=== PATIENT | male | born 1985 | race Caucasian/White ===

== ENCOUNTER 2016-09-12 16:35 | Emergency (ER) | payer MEDICARE, MEDICAID ==
[2016-09-12] MEDS ORDERED: KETOROLAC 30 MG/ML VIAL (J1885) As Ordered ONE (19:41)
[2016-09-12 19:58] LABS: BASO # 0.1 K/mm3 (0.0-0.2); BASO % 0.9 % (0.0-1.0); EOS # 0.3 K/mm3 (0.0-0.50); EOS % 4.4 % (0.0-3.0); LARGE UNSTAINED CELL # 0.2 K/mm3 (0.0-0.4); LARGE UNSTAINED CELL % 3.6 % (0.0-4.0); LYMPH # 1.9 K/mm3 (1.5-4.5); LYMPH % 31.5 % (24.0-44.0); MEAN CORPUSCULAR HEMOGLOBIN 30.7 pg (27.0-33.0); MEAN CORPUSCULAR HGB CONC 36.5 g/dl (32.0-36.5); MONO # 0.5 K/mm3 (0.0-0.8); MONO % 8.6 % (0.0-5.0); NEUTROPHILS # 3.1 K/mm3 (1.8-7.7); PLATELET COUNT, AUTOMATED 191 k/mm3 (150-450); RED CELL DISTRIBUTION WIDTH 12.5 % (11.5-14.5)
[2016-09-12 20:17] LABS: ANION GAP 8 MEQ/L (8-16); BLOOD UREA NITROGEN 10 MG/DL (7-18); CALCIUM LEVEL 9.3 MG/DL (8.5-10.1); CARBON DIOXIDE LEVEL 30 MEQ/L (21-32); CHLORIDE LEVEL 105 MEQ/L (98-107); CREATININE FOR GFR 0.85 MG/DL (0.70-1.30); GLOMERULAR FILTRATION RATE > 60.0 (>60); GLUCOSE, FASTING 76 MG/DL (70-105); POTASSIUM SERUM 3.8 MEQ/L (3.5-5.1); SODIUM LEVEL 143 MEQ/L (136-145)
[2016-09-12 20:20] LABS: INR 1.05
--- NOTE | 2016-09-12 21:19 | EDDOCDS ---
Nurse's Notes [facility] Name: Derek Tenorio Age: 31 yrs Sex: Male : 1985 Arrival Date: 09/12/2016 Time: 16:35 Bed I8 / 16 Private MD: NO PRIMARY PHYSICIAN, . Diagnosis: Chest pain, unspecified;Conduction disorder, unspecified Presentation: 09/12 16:39 Presenting complaint: Patient states: Left side chest pain for over a week. Aspirin was dwg not taken prior to arrival. Adult Sepsis Screening: The patient does not have new or worsening altered mentation. Patient's respiratory rate is less than 22. Systolic blood pressure is greater than 100. Patient has a qSOFA score of 0- Negative Sepsis Screen. Suicide/Homicide risk assessment- the patient denies having any suicidal and/or homicidal ideations and does not present with any other emotional, behavioral or mental health complaints. Status: Patient is not a chief dispatcher service or dependent. Transition of care: patient was not received from another setting of care. 16:39 Acuity: ABBY Level 4 dwg 16:39 Method Of Arrival: Walkin/Carried/Asstd dwg Triage Assessment: 16:40 General: Appears in no apparent distress. Pain: Pain currently is 5 out of 10 on a pain dwg scale. HIV screening NA for this visit Offered previously. The patient is triaged at the bedside. See Assessment in Nurses Notes section of ED record. The patient is triaged at the bedside. See Assessment in Nurses Notes section of ED record. 21:18 Cardiovascular: Chest pain is denied episodes. af2 Historical: - Allergies: no known allergies; - Home Meds: 1. none - PMHx: none; - PSHx: none; - Social history: Smoking status: Patient states former smoker of tobacco. No barriers to communication noted, The patient speaks fluent Malagasy. - Family history: Not pertinent. - : The pt / caregiver states he / she is not on anticoagulants. Home medication list is obtained from the patient. - Exposure Risk Screening:: None identified. Screenin:45 Screening information is obtained from the patient. Fall risk: No risks identified. af2 Assistance ADL's: requires no assistance with activities of daily living. Abuse/DV Screen: The patient / caregiver reports he/she is: not in a situation that causes fear, pain or injury. Nutritional screening: No deficits noted. Advance Directives: Currently, there is no health care proxy. home support is adequate. Assessment: 19:46 General: Appears in no apparent distress, comfortable, Behavior is appropriate for age, af2 cooperative. General: pt states no pain at this time, toradol held. will continue to monitor.. Pain: Denies pain. Neurological: Level of Consciousness is awake, alert, obeys commands, Oriented to person, place, time. Cardiovascular: Capillary refill < 3 seconds in bilateral fingers Heart tones S1 S2 present Pulses are 2+ in right radial artery and left radial artery Rhythm is pt not on cardiac monitor technician. Chest pain is denied. Respiratory: Airway is patent Respiratory effort is even, unlabored, Breath sounds are clear bilaterally. Derm: Skin is normal. 20:57 General: EVERTON Davis at bedside with pt.. af2 Vital Signs: 16:36 BP 152 / 92; Pulse 79; Resp 16; Temp 95.9(O); Pulse Ox 100% ; Weight 81.65 kg; Height 6 cmb ft. 1 in. (185.42 cm); Pain 5/10; 21:13 BP 126 / 80; Pulse 60; Resp 18; Temp 98.8; Pulse Ox 99% ; Pain 2/10; ajs 16:36 Body Mass Index 23.75 (81.65 kg, 185.42 cm) cmb Vitals: 16:36 Log In Time: September 12, 2016 at 16:35. cmb ED Course: 16:36 Patient visited by Norma Osei. cmb 16:36 NO PRIMARY PHYSICIAN, . is Private Physician. cmb 16:36 Patient moved to Waiting cmb 16:38 Patient moved to Pre RCE cmb 16:40 Triage Initiated dwg 16:43 Patient moved to PR2 / 26 mb9 16:45 EKG done. (by ED staff). Reviewed by Kwabena Ramos MD. ar3 16:50 Patient visited by Ana Paula Robledo PCA. ar3 16:50 Patient moved to Pre RCE dwg 18:44 Patient moved to Triage 3 srm 18:53 [facility]C [facility] ck7 18:53 Kwabena Ramos MD is Attending Physician. ck7 18:53 Patient visited by Remy Castro RPA-C. ck7 19:25 Patient moved to sls1 19:31 Patient visited by Remy Castro RPA-C. ck7 19:45 D-Dimer Quant Sent. af2 19:45 Cardiac Marker Panel Sent. af2 19:45 Pt & Aptt Sent. af2 19:45 MED Profile Sent. af2 19:45 CBC with Diff Sent. af2 19:46 Inserted saline lock: 20 gauge in left antecubital area and blood collected. The af2 patient tolerated the procedure well. 19:47 Patient visited by Paige Mccauley RN. af2 20:34 Patient visited by Remy Castro RPA-C. ck7 20:58 Patient visited by Paige Mccauley RN. af2 20:58 Nash Tavarez is Referral Physician. ck7 21:13 Patient visited by Maura Mohr. ajs 21:18 The patient / caregiver is instructed regarding the plan of care and ED course. none. af2 21:18 No procedures done that require assistance. af2 Administered Medications: 19:45 Drug: NS 0.9% 1000 ml [sodium chloride 0.9 % intravenous solution] Route: IV; Rate: af2 bolus; Site: left antecubital; 21:17 Follow up: IV Status: Completed infusion af2 21:17 Not Given (Patient Refused): ketorolac 30 mg IVP once af2 Order Results: Lab Order: CBC with Diff; SPEC'M 09/12/16 19:39 Test: WHITE BLOOD COUNT; Value: 6.0; Range: 4.0-10.0; Units: K/mm3; Status: F Test: RED BLOOD COUNT; Value: 4.87; Range: 4.30-6.10; Units: M/mm3; Status: F Test: HEMOGLOBIN; Value: 14.9; Range: 14.0-18.0; Units: g/dl; Status: F Test: HEMATOCRIT; Value: 40.9; Range: 42.0-52.0; Abnormal: Below low normal; Units: %; Status: F Test: MEAN CORPUSCULAR VOLUME; Value: 84.0; Range: 80.0-96.0; Units: fl; Status: F Test: MEAN CORPUSCULAR HEMOGLOBIN; Value: 30.7; Range: 27.0-33.0; Units: pg; Status: F Test: MEAN CORPUSCULAR HGB CONC; Value: 36.5; Range: 32.0-36.5; Units: g/dl; Status: F Test: RED CELL DISTRIBUTION WIDTH; Value: 12.5; Range: 11.5-14.5; Units: %; Status: F Test: PLATELET COUNT, AUTOMATED; Value: 191; Range: 150-450; Units: k/mm3; Status: F Test: NEUTROPHILS %; Value: 51.0; Range: 36.0-66.0; Units: %; Status: F Test: LYMPH %; Value: 31.5; Range: 24.0-44.0; Units: %; Status: F Test: MONO %; Value: 8.6; Range: 0.0-5.0; Abnormal: Above high normal; Units: %; Status: F Test: EOS %; Value: 4.4; Range: 0.0-3.0; Abnormal: Above high normal; Units: %; Status: F Test: BASO %; Value: 0.9; Range: 0.0-1.0; Units: %; Status: F Test: LARGE UNSTAINED CELL %; Value: 3.6; Range: 0.0-4.0; Units: %; Status: F Test: NEUTROPHILS #; Value: 3.1; Range: 1.8-7.7; Units: K/mm3; Status: F Test: LYMPH #; Value: 1.9; Range: 1.5-4.5; Units: K/mm3; Status: F Test: MONO #; Value: 0.5; Range: 0.0-0.8; Units: K/mm3; Status: F Test: EOS #; Value: 0.3; Range: 0.0-0.50; Units: K/mm3; Status: F Test: BASO #; Value: 0.1; Range: 0.0-0.2; Units: K/mm3; Status: F Test: LARGE UNSTAINED CELL #; Value: 0.2; Range: 0.0-0.4; Units: K/mm3; Status: F Lab Order: MED Profile; SPEC'M 09/12/16 19:39 Test: GLUCOSE, FASTING; Value: 76; Range: 70-105; Units: MG/DL; Status: F Test: BLOOD UREA NITROGEN; Value: 10; Range: 7-18; Units: MG/DL; Status: F Test: CREATININE FOR GFR; Value: 0.85; Range: 0.70-1.30; Units: MG/DL; Status: F Test: GLOMERULAR FILTRATION RATE; Value: > 60.0; Range: >60; Status: F Test: SODIUM LEVEL; Value: 143; Range: 136-145; Units: MEQ/L; Status: F Test: POTASSIUM SERUM; Value: 3.8; Range: 3.5-5.1; Units: MEQ/L; Status: F Test: CHLORIDE LEVEL; Value: 105; Range: 98-107; Units: MEQ/L; Status: F Test: CARBON DIOXIDE LEVEL; Value: 30; Range: 21-32; Units: MEQ/L; Status: F Test: ANION GAP; Value: 8; Range: 8-16; Units: MEQ/L; Status: F Test: CALCIUM LEVEL; Value: 9.3; Range: 8.5-10.1; Units: MG/DL; Status: F Test Note: ; Units are mL/min/1.73 m2 Chronic Kidney Disease Staging per NKF: Stage I & II GFR >=60 Normal to Mildly Decreased Stage III GFR 30-59 Moderately Decreased Stage IV GFR 15-29 Severely Decreased Stage V GFR <15 Very Little GFR Left ESRD GFR <15 on CLEANING SPECIALIST Lab Order: Pt & Aptt; SPEC'M 09/12/16 20:03 Test: PROTHROMBIN TIME; Value: 13.8; Range: 12.3-14.5; Units: SECONDS; Status: F Test: INR; Value: 1.05; Status: F Test: PARTIAL THROMBOPLASTIN TIME; Value: 30.6; Range: 26.6-37.1; Units: SECONDS; Status: F Test Note: ; THERAPUTIC HUMAN INR VALUES INDICATIONS NORMAL RANGES PROPHYLAXIS/TREATMENT OF: VENOUS THROMBOSIS 2.0-3.0 PULMONARY EMBOLISM 2.0-3.0 PREVENTION OF SYSTEMIC EMBOLISM FROM: TISSUE HEART VALVES 2.0-3.0 ACUTE MYOCARDIAL INFARCTION 2.0-3.0 VALVULAR HEART DISEASE 2.0-3.0 ATRIAL FIBRILLATION 2.0-3.0 MECHANICAL VALVES(HIGH RISK) 2.5-3.5 RECURRENT MYOCARDIAL INFARCTION 2.5-3.5 Lab Order: Cardiac Marker Panel; SPEC'M 09/12/16 19:39 Test: CPK CREATINE PHOSPHOKINASE; Value: 147; Range: 39-308; Units: U/L; Status: F Test: CK-MB VALUE MASS; Value: 1.0; Range: 0.0-3.6; Units: NG/ML; Status: F Test: MB/CK RELATIVE INDEX; Value: 0.68; Range: < OR =4; Status: F Test: TROPONIN I; Value: < 0.02; Range: < 0.10; Units: NG/ML; Status: F Test Note: ; DIAGNOSIS CRITERIA MMB ng/ml Relative Index (RI) NON-AMI < or = 5 N/A CO[place]MAN ZONE > 5 < or = 4 AMI > 5 > 4 Lab Order: D-Dimer Quant; SPEC'M 09/12/16 20:03 Test: D-DIMER QUANT; Value: < 270.0; Range: <500; Units: ng/ml; Status: F Outcome: 20:58 Discharge ordered by Provider. ck7 21:17 Discharge Assessment: Patient awake, alert and oriented x 3. No cognitive and/or af2 functional deficits noted. Patient verbalized understanding of disposition instructions. patient administered narcotics - no. The following High Risk Discharge criteria are identified: None. Discharged to home ambulatory. Condition: good. Discharge instructions given to patient, Instructed on discharge instructions, follow up and referral plans. Demonstrated understanding of instructions, Pt was receptive of discharge instructions/ teaching. No special radiology studies were completed. Property :Personal belongings accompany Pt. 21:18 Patient left the ED. af2 Signatures: Ramin Gómez RN RN dwSultana Forman RN RN srm Meena, Ana Paula, SALES AND IN HOME DELIVERY SPECIALIST SALES AND IN HOME DELIVERY SPECIALIST ar3 Maura Mohr Shannon RN RN ml1 Norma Osei Christopher, RPA-C RPA-Cck7 Sim DenneyRN RN mb9 Paige Mccauley RN RN af2 MTDD
--- NOTE | 2016-09-12 21:19 | EDDOCDS ---
Physician Documentation [facility] Name: Derek Tenorio Age: 31 yrs Sex: Male : 1985 Arrival Date: 09/12/2016 Time: 16:35 Bed I8 / 16 Private MD: NO PRIMARY PHYSICIAN, . Disposition: 09/12/16 20:58 Discharged to Home/Self Care. Impression: Chest pain, unspecified, Conduction disorder, unspecified. - Condition is Stable. - Discharge Instructions: Nonspecific Chest Pain, Electrocardiography. - Medication Reconciliation, Local Pharmacy Hours form. - Follow up: Nash Tavarez; When: 1 - 2 days; Reason: Recheck today's complaints, Continuance of care. - Problem is new. - Symptoms have improved. - Notes: FOLLOW UP WITH DR TAVAREZ OR ONE OF HIS ASSOCIATES, RETURN TO THE ER IF THE SYMPTOMS WORSEN OR BECOME CONCERNING Historical: - Allergies: no known allergies; - Home Meds: 1. none - PMHx: none; - PSHx: none; - Social history: Smoking status: Patient states former smoker of tobacco. No barriers to communication noted, The patient speaks fluent Ivorian. - Family history: Not pertinent. - : The pt / caregiver states he / she is not on anticoagulants. Home medication list is obtained from the patient. - Exposure Risk Screening:: None identified. Vital Signs: 09/12 16:36 BP 152 / 92; Pulse 79; Resp 16; Temp 95.9(O); Pulse Ox 100% ; Weight 81.65 kg / 180.01 cmb lbs; Height 6 ft. 1 in. (185.42 cm); Pain 5/10; 21:13 BP 126 / 80; Pulse 60; Resp 18; Temp 98.8; Pulse Ox 99% ; Pain 2/10; ajs 16:36 Body Mass Index 23.75 (81.65 kg, 185.42 cm) cmb MDM: 16:44 ECG WITH READING ER PHYS+CARDIAG ordered. EDMS 19:11 IV Saline Lock ordered. ck7 19:11 ketorolac 30 mg IVP once ordered. ck7 19:11 NS 0.9% 1000 ml IV at bolus once ordered. ck7 19:13 CBC with Diff Ordered. EDMS 19:13 MED Profile Ordered. EDMS 19:13 Pt & Aptt Ordered. EDMS 19:13 Cardiac Marker Panel Ordered. EDMS 19:13 D-Dimer Quant Ordered. EDMS 19:13 Chest, 2 View (pa\E\lat) Ordered. EDMS 20:40 CBC with Diff Reviewed. ck7 20:40 MED Profile Reviewed. ck7 20:40 Pt & Aptt Reviewed. ck7 20:40 Cardiac Marker Panel Reviewed. ck7 20:40 D-Dimer Quant Reviewed. ck7 20:48 Financial registration complete. ks16 20:55 Undo -Financial registration. gjb Administered Medications: 19:45 Drug: NS 0.9% 1000 ml [sodium chloride 0.9 % intravenous solution] Route: IV; Rate: af2 bolus; Site: left antecubital; 21:17 Follow up: IV Status: Completed infusion af2 21:17 Not Given (Patient Refused): ketorolac 30 mg IVP once af2 Signatures: Dispatcher [employer] EDRamin Koenig, RN RN docg Remy Castro, RPA-C RPA-Cck7 Paige Mccauley RN RN af2 Gisela Bowman Kimberly, Reg Reg ks16 MTDD
--- NOTE | 2016-09-13 07:34 | REP ---
Chest two views HISTORY: Chest pain Comparison: 07/04/2010 The lungs are clear. The heart is normal in size. The pulmonary vasculature is normal in appearance. The bony structure is intact. IMPRESSION: No acute disease. Signed by Dennis Ragsdale MD 09/12/2016 07:57 P
--- NOTE | 2016-09-13 08:02 | ECGEPIP ---
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
--- NOTE | 2016-09-14 22:19 | EDDOCDS ---
Physician Documentation [facility] Name: Derek Tenorio Age: 31 yrs Sex: Male : 1985 Arrival Date: 09/12/2016 Time: 16:35 Bed I8 / 16 Private MD: NO PRIMARY PHYSICIAN, . Disposition: 09/12/16 20:58 Discharged to Home/Self Care. Impression: Chest pain, unspecified, Conduction disorder, unspecified. - Condition is Stable. - Discharge Instructions: Nonspecific Chest Pain, Electrocardiography. - Medication Reconciliation, Local Pharmacy Hours form. - Follow up: Nash Tavarez; When: 1 - 2 days; Reason: Recheck today's complaints, Continuance of care. - Problem is new. - Symptoms have improved. - Notes: FOLLOW UP WITH DR TAVAREZ OR ONE OF HIS ASSOCIATES, RETURN TO THE ER IF THE SYMPTOMS WORSEN OR BECOME CONCERNING Historical: - Allergies: no known allergies; - Home Meds: 1. none - PMHx: none; - PSHx: none; - Social history: Smoking status: Patient states former smoker of tobacco. No barriers to communication noted, The patient speaks fluent Japanese. - Family history: Not pertinent. - : The pt / caregiver states he / she is not on anticoagulants. Home medication list is obtained from the patient. - Exposure Risk Screening:: None identified. Vital Signs: 09/12 16:36 BP 152 / 92; Pulse 79; Resp 16; Temp 95.9(O); Pulse Ox 100% ; Weight 81.65 kg / 180.01 cmb lbs; Height 6 ft. 1 in. (185.42 cm); Pain 5/10; 21:13 BP 126 / 80; Pulse 60; Resp 18; Temp 98.8; Pulse Ox 99% ; Pain 2/10; ajs 16:36 Body Mass Index 23.75 (81.65 kg, 185.42 cm) cmb MDM: 16:44 ECG WITH READING ER PHYS+CARDIAG ordered. EDMS 19:11 IV Saline Lock ordered. ck7 19:11 ketorolac 30 mg IVP once ordered. ck7 19:11 NS 0.9% 1000 ml IV at bolus once ordered. ck7 19:13 CBC with Diff Ordered. EDMS 19:13 MED Profile Ordered. EDMS 19:13 Pt & Aptt Ordered. EDMS 19:13 Cardiac Marker Panel Ordered. EDMS 19:13 D-Dimer Quant Ordered. EDMS 19:13 Chest, 2 View (pa\E\lat) Ordered. EDMS 20:40 CBC with Diff Reviewed. ck7 20:40 MED Profile Reviewed. ck7 20:40 Pt & Aptt Reviewed. ck7 20:40 Cardiac Marker Panel Reviewed. ck7 20:40 D-Dimer Quant Reviewed. ck7 20:48 Financial registration complete. ks16 20:55 Undo -Financial registration. gjb 23:44 [facility] Payment Agreement was scanned into [employer] and attached to record. gjb :44 Financial registration complete. gjb 09/13 10:14 T-Sheet-- Draft Copy was scanned into [employer] and attached to record. gb 10:14 ECG/EKG was scanned into [employer] and attached to record. gb Administered Medications: 09/12 19:45 Drug: NS 0.9% 1000 ml [sodium chloride 0.9 % intravenous solution] Route: IV; Rate: af2 bolus; Site: left antecubital; 21:17 Follow up: IV Status: Completed infusion af2 21:17 Not Given (Patient Refused): ketorolac 30 mg IVP once af2 Signatures: Dispatcher [employer] EDMS Ramin Gómez, RN RN dwg Niki Díaz, Reg Reg gb Remy Castro, RPA-C RPA-Cck7 Paige MccauleyRN RN af2 Gisela Bowman b Abena Luna, Reg Reg ks16 The chart was reviewed and I authenticate all verbal orders and agree with the evaluation and treatment provided.Attachments: 23:44 [facility] Payment Agreement [facility] 09/13 10:14 T-Sheet-- Draft Copy gb 10:14 ECG/EKG gb Chart Complete MTDD
--- NOTE | 2016-09-14 22:19 | EDDOCDS ---
Nurse's Notes [facility] Name: Dylan Rhodes Age: 31 yrs Sex: Male : 1985 Arrival Date: 09/12/2016 Time: 16:35 Bed I8 / 16 Private MD: NO PRIMARY PHYSICIAN, . Diagnosis: Chest pain, unspecified;Conduction disorder, unspecified Presentation: 09/12 16:39 Presenting complaint: Patient states: Left side chest pain for over a week. Aspirin was dwg not taken prior to arrival. Adult Sepsis Screening: The patient does not have new or worsening altered mentation. Patient's respiratory rate is less than 22. Systolic blood pressure is greater than 100. Patient has a qSOFA score of 0- Negative Sepsis Screen. Suicide/Homicide risk assessment- the patient denies having any suicidal and/or homicidal ideations and does not present with any other emotional, behavioral or mental health complaints. Status: Patient is not a field service consultant or dependent. Transition of care: patient was not received from another setting of care. 16:39 Acuity: ABBY Level 4 dwg 16:39 Method Of Arrival: Walkin/Carried/Asstd dwg Triage Assessment: 16:40 General: Appears in no apparent distress. Pain: Pain currently is 5 out of 10 on a pain dwg scale. HIV screening NA for this visit Offered previously. The patient is triaged at the bedside. See Assessment in Nurses Notes section of ED record. The patient is triaged at the bedside. See Assessment in Nurses Notes section of ED record. 21:18 Cardiovascular: Chest pain is denied episodes. af2 Historical: - Allergies: no known allergies; - Home Meds: 1. none - PMHx: none; - PSHx: none; - Social history: Smoking status: Patient states former smoker of tobacco. No barriers to communication noted, The patient speaks fluent Malagasy. - Family history: Not pertinent. - : The pt / caregiver states he / she is not on anticoagulants. Home medication list is obtained from the patient. - Exposure Risk Screening:: None identified. Screenin:45 Screening information is obtained from the patient. Fall risk: No risks identified. af2 Assistance ADL's: requires no assistance with activities of daily living. Abuse/DV Screen: The patient / caregiver reports he/she is: not in a situation that causes fear, pain or injury. Nutritional screening: No deficits noted. Advance Directives: Currently, there is no health care proxy. home support is adequate. Assessment: 19:46 General: Appears in no apparent distress, comfortable, Behavior is appropriate for age, af2 cooperative. General: pt states no pain at this time, toradol held. will continue to monitor.. Pain: Denies pain. Neurological: Level of Consciousness is awake, alert, obeys commands, Oriented to person, place, time. Cardiovascular: Capillary refill < 3 seconds in bilateral fingers Heart tones S1 S2 present Pulses are 2+ in right radial artery and left radial artery Rhythm is pt not on bus monitor. Chest pain is denied. Respiratory: Airway is patent Respiratory effort is even, unlabored, Breath sounds are clear bilaterally. Derm: Skin is normal. 20:57 General: EVERTON Davis at bedside with pt.. af2 Vital Signs: 16:36 BP 152 / 92; Pulse 79; Resp 16; Temp 95.9(O); Pulse Ox 100% ; Weight 81.65 kg; Height 6 cmb ft. 1 in. (185.42 cm); Pain 5/10; 21:13 BP 126 / 80; Pulse 60; Resp 18; Temp 98.8; Pulse Ox 99% ; Pain 2/10; ajs 16:36 Body Mass Index 23.75 (81.65 kg, 185.42 cm) cmb Vitals: 16:36 Log In Time: September 12, 2016 at 16:35. cmb ED Course: 16:36 Patient visited by Norma Osei. cmb 16:36 NO PRIMARY PHYSICIAN, . is Private Physician. cmb 16:36 Patient moved to Waiting cmb 16:38 Patient moved to Pre RCE cmb 16:40 Triage Initiated dwg 16:43 Patient moved to PR2 / 26 mb9 16:45 EKG done. (by ED staff). Reviewed by Kwabena Ramos MD. ar3 16:50 Patient visited by Ana Paula Robledo PCA. ar3 16:50 Patient moved to Pre RCE dwg 18:44 Patient moved to Triage 3 srm 18:53 Remy Castro [facility]-C [facility]. ck7 18:53 Kwabena Ramos MD is Attending Physician. ck7 18:53 Patient visited by Remy Castro RPA-C. ck7 19:25 Patient moved to sls1 19:31 Patient visited by Remy Castro RPA-C. ck7 19:45 D-Dimer Quant Sent. af2 19:45 Cardiac Marker Panel Sent. af2 19:45 Pt & Aptt Sent. af2 19:45 MED Profile Sent. af2 19:45 CBC with Diff Sent. af2 19:46 Inserted saline lock: 20 gauge in left antecubital area and blood collected. The af2 patient tolerated the procedure well. 19:47 Patient visited by Paige Mccauley RN. af2 20:34 Patient visited by Remy Castro RPA-C. ck7 20:58 Patient visited by Paige Mccauley RN. af2 20:58 Nash Tavarez is Referral Physician. ck7 21:13 Patient visited by Maura Mohr. ajs 21:18 The patient / caregiver is instructed regarding the plan of care and ED course. none. af2 21:18 No procedures done that require assistance. af2 23:44 [facility] Payment Agreement was scanned into Bench and attached to record. gjb 09/13 07:41 Chest, 2 View (pa\E\lat) Returned. EDMS 08:22 EKG-ADULT Returned. EDMS 10:14 T-Sheet-- Draft Copy was scanned into [employer] and attached to record. gb 10:14 ECG/EKG was scanned into [employer] and attached to record. gb Administered Medications: 09/12 19:45 Drug: NS 0.9% 1000 ml [sodium chloride 0.9 % intravenous solution] Route: IV; Rate: af2 bolus; Site: left antecubital; 21:17 Follow up: IV Status: Completed infusion af2 21:17 Not Given (Patient Refused): ketorolac 30 mg IVP once af2 Order Results: Lab Order: CBC with Diff; SPEC'M 09/12/16 19:39 Test: WHITE BLOOD COUNT; Value: 6.0; Range: 4.0-10.0; Units: K/mm3; Status: F Test: RED BLOOD COUNT; Value: 4.87; Range: 4.30-6.10; Units: M/mm3; Status: F Test: HEMOGLOBIN; Value: 14.9; Range: 14.0-18.0; Units: g/dl; Status: F Test: HEMATOCRIT; Value: 40.9; Range: 42.0-52.0; Abnormal: Below low normal; Units: %; Status: F Test: MEAN CORPUSCULAR VOLUME; Value: 84.0; Range: 80.0-96.0; Units: fl; Status: F Test: MEAN CORPUSCULAR HEMOGLOBIN; Value: 30.7; Range: 27.0-33.0; Units: pg; Status: F Test: MEAN CORPUSCULAR HGB CONC; Value: 36.5; Range: 32.0-36.5; Units: g/dl; Status: F Test: RED CELL DISTRIBUTION WIDTH; Value: 12.5; Range: 11.5-14.5; Units: %; Status: F Test: PLATELET COUNT, AUTOMATED; Value: 191; Range: 150-450; Units: k/mm3; Status: F Test: NEUTROPHILS %; Value: 51.0; Range: 36.0-66.0; Units: %; Status: F Test: LYMPH %; Value: 31.5; Range: 24.0-44.0; Units: %; Status: F Test: MONO %; Value: 8.6; Range: 0.0-5.0; Abnormal: Above high normal; Units: %; Status: F Test: EOS %; Value: 4.4; Range: 0.0-3.0; Abnormal: Above high normal; Units: %; Status: F Test: BASO %; Value: 0.9; Range: 0.0-1.0; Units: %; Status: F Test: LARGE UNSTAINED CELL %; Value: 3.6; Range: 0.0-4.0; Units: %; Status: F Test: NEUTROPHILS #; Value: 3.1; Range: 1.8-7.7; Units: K/mm3; Status: F Test: LYMPH #; Value: 1.9; Range: 1.5-4.5; Units: K/mm3; Status: F Test: MONO #; Value: 0.5; Range: 0.0-0.8; Units: K/mm3; Status: F Test: EOS #; Value: 0.3; Range: 0.0-0.50; Units: K/mm3; Status: F Test: BASO #; Value: 0.1; Range: 0.0-0.2; Units: K/mm3; Status: F Test: LARGE UNSTAINED CELL #; Value: 0.2; Range: 0.0-0.4; Units: K/mm3; Status: F Lab Order: MED Profile; SPEC'M 09/12/16 19:39 Test: GLUCOSE, FASTING; Value: 76; Range: 70-105; Units: MG/DL; Status: F Test: BLOOD UREA NITROGEN; Value: 10; Range: 7-18; Units: MG/DL; Status: F Test: CREATININE FOR GFR; Value: 0.85; Range: 0.70-1.30; Units: MG/DL; Status: F Test: GLOMERULAR FILTRATION RATE; Value: > 60.0; Range: >60; Status: F Test: SODIUM LEVEL; Value: 143; Range: 136-145; Units: MEQ/L; Status: F Test: POTASSIUM SERUM; Value: 3.8; Range: 3.5-5.1; Units: MEQ/L; Status: F Test: CHLORIDE LEVEL; Value: 105; Range: 98-107; Units: MEQ/L; Status: F Test: CARBON DIOXIDE LEVEL; Value: 30; Range: 21-32; Units: MEQ/L; Status: F Test: ANION GAP; Value: 8; Range: 8-16; Units: MEQ/L; Status: F Test: CALCIUM LEVEL; Value: 9.3; Range: 8.5-10.1; Units: MG/DL; Status: F Test Note: ; Units are mL/min/1.73 m2 Chronic Kidney Disease Staging per NKF: Stage I & II GFR >=60 Normal to Mildly Decreased Stage III GFR 30-59 Moderately Decreased Stage IV GFR 15-29 Severely Decreased Stage V GFR <15 Very Little GFR Left ESRD GFR <15 on BLOOD OR BLOOD BANK TECHNICIAN Lab Order: Pt & Aptt; SPEC'M 09/12/16 20:03 Test: PROTHROMBIN TIME; Value: 13.8; Range: 12.3-14.5; Units: SECONDS; Status: F Test: INR; Value: 1.05; Status: F Test: PARTIAL THROMBOPLASTIN TIME; Value: 30.6; Range: 26.6-37.1; Units: SECONDS; Status: F Test Note: ; THERAPUTIC HUMAN INR VALUES INDICATIONS NORMAL RANGES PROPHYLAXIS/TREATMENT OF: VENOUS THROMBOSIS 2.0-3.0 PULMONARY EMBOLISM 2.0-3.0 PREVENTION OF SYSTEMIC EMBOLISM FROM: TISSUE HEART VALVES 2.0-3.0 ACUTE MYOCARDIAL INFARCTION 2.0-3.0 VALVULAR HEART DISEASE 2.0-3.0 ATRIAL FIBRILLATION 2.0-3.0 MECHANICAL VALVES(HIGH RISK) 2.5-3.5 RECURRENT MYOCARDIAL INFARCTION 2.5-3.5 Lab Order: Cardiac Marker Panel; SPEC'M 09/12/16 19:39 Test: CPK CREATINE PHOSPHOKINASE; Value: 147; Range: 39-308; Units: U/L; Status: F Test: CK-MB VALUE MASS; Value: 1.0; Range: 0.0-3.6; Units: NG/ML; Status: F Test: MB/CK RELATIVE INDEX; Value: 0.68; Range: < OR =4; Status: F Test: TROPONIN I; Value: < 0.02; Range: < 0.10; Units: NG/ML; Status: F Test Note: ; DIAGNOSIS CRITERIA MMB ng/ml Relative Index (RI) NON-AMI < or = 5 N/A CO[place] ZONE > 5 < or = 4 AMI > 5 > 4 Lab Order: D-Dimer Quant; SPEC'M 09/12/16 20:03 Test: D-DIMER QUANT; Value: < 270.0; Range: <500; Units: ng/ml; Status: F Radiology Order: EKG-ADULT Test: EKG-ADULT REASON FOR EXAMINATION: Chest Pain; Stationary ECG Study; [facility] - ED; ; Test Date: 2016-09-12; Pat Name: DYLAN RHODES Department:; Room: -; Gender: M [employer]: kellen; : 1985 Requested By: Kwabena Lu; Order Number: [id number] Reading MD: Indy Elaine; Measurements; Intervals [place]; Rate: 70 P: 26; WV: 163 QRS: 74; QRSD: 124 T: 50; QT: 374; QTc: 405; Interpretive Statements; SINUS RHYTHM; MODERATE INTRAVENTRICULAR CONDUCTION DELAY; NO PRIOR FOR COMPARISON; Electronically Signed On 09-13-2016 8:02:22 EST by Indy Elaine; Radiology Order: Chest, 2 View (pa\E\lat) Test: Chest, 2 View (pa\E\lat) REASON FOR EXAMINATION: Chest Pain; Chest two views; ; HISTORY: Chest pain; ; Comparison: 07/04/2010; ; The lungs are clear. The heart is normal in size. The pulmonary vasculature is; normal in appearance. The bony structure is intact.; ; IMPRESSION: No acute disease.; ; ; Signed by; Dennis Ragsdale MD 09/12/2016 07:57 P; Outcome: 20:58 Discharge ordered by Provider. ck7 21:17 Discharge Assessment: Patient awake, alert and oriented x 3. No cognitive and/or af2 functional deficits noted. Patient verbalized understanding of disposition instructions. patient administered narcotics - no. The following High Risk Discharge criteria are identified: None. Discharged to home ambulatory. Condition: good. Discharge instructions given to patient, Instructed on discharge instructions, follow up and referral plans. Demonstrated understanding of instructions, Pt was receptive of discharge instructions/ teaching. No special radiology studies were completed. Property :Personal belongings accompany Pt. 21:18 Patient left the ED. af2 Signatures: Dispatcher [employer] EDMS Ramin Gómez, RN Sultana Martinez RN RN srm Niki Díaz, Reg Reg gb Ana Paula Robledo, EQUINE DENTIST EQUINE DENTIST ar3 Maura Mohr Shannon, RN RN sls1 Norma Osei Christopher, RPA-C RPA-Cck7 Sim Denney RN RN mb9 Paige Mccauley RN RN af2 Gisela Bowman Chart Complete MTDD
--- NOTE | 2016-09-14 22:19 | EDDOCDS ---
Physician Documentation [facility] Name: Derek Tenorio Age: 31 yrs Sex: Male : 1985 Arrival Date: 09/12/2016 Time: 16:35 Bed I8 / 16 Private MD: NO PRIMARY PHYSICIAN, . Disposition: 09/12/16 20:58 Discharged to Home/Self Care. Impression: Chest pain, unspecified, Conduction disorder, unspecified. - Condition is Stable. - Discharge Instructions: Nonspecific Chest Pain, Electrocardiography. - Medication Reconciliation, Local Pharmacy Hours form. - Follow up: Nash Tavarez; When: 1 - 2 days; Reason: Recheck today's complaints, Continuance of care. - Problem is new. - Symptoms have improved. - Notes: FOLLOW UP WITH DR TAVAREZ OR ONE OF HIS ASSOCIATES, RETURN TO THE ER IF THE SYMPTOMS WORSEN OR BECOME CONCERNING Historical: - Allergies: no known allergies; - Home Meds: 1. none - PMHx: none; - PSHx: none; - Social history: Smoking status: Patient states former smoker of tobacco. No barriers to communication noted, The patient speaks fluent Moroccan. - Family history: Not pertinent. - : The pt / caregiver states he / she is not on anticoagulants. Home medication list is obtained from the patient. - Exposure Risk Screening:: None identified. Vital Signs: 09/12 16:36 BP 152 / 92; Pulse 79; Resp 16; Temp 95.9(O); Pulse Ox 100% ; Weight 81.65 kg / 180.01 cmb lbs; Height 6 ft. 1 in. (185.42 cm); Pain 5/10; 21:13 BP 126 / 80; Pulse 60; Resp 18; Temp 98.8; Pulse Ox 99% ; Pain 2/10; ajs 16:36 Body Mass Index 23.75 (81.65 kg, 185.42 cm) cmb MDM: 16:44 ECG WITH READING ER PHYS+CARDIAG ordered. EDMS 19:11 IV Saline Lock ordered. ck7 19:11 ketorolac 30 mg IVP once ordered. ck7 19:11 NS 0.9% 1000 ml IV at bolus once ordered. ck7 19:13 CBC with Diff Ordered. EDMS 19:13 MED Profile Ordered. EDMS 19:13 Pt & Aptt Ordered. EDMS 19:13 Cardiac Marker Panel Ordered. EDMS 19:13 D-Dimer Quant Ordered. EDMS 19:13 Chest, 2 View (pa\E\lat) Ordered. EDMS 20:40 CBC with Diff Reviewed. ck7 20:40 MED Profile Reviewed. ck7 20:40 Pt & Aptt Reviewed. ck7 20:40 Cardiac Marker Panel Reviewed. ck7 20:40 D-Dimer Quant Reviewed. ck7 20:48 Financial registration complete. ks16 20:55 Undo -Financial registration. gjb 23:44 [facility] Payment Agreement was scanned into [employer] and attached to record. gjb :44 Financial registration complete. gjb 09/13 10:14 T-Sheet-- Draft Copy was scanned into [employer] and attached to record. gb 10:14 ECG/EKG was scanned into [employer] and attached to record. gb Administered Medications: 09/12 19:45 Drug: NS 0.9% 1000 ml [sodium chloride 0.9 % intravenous solution] Route: IV; Rate: af2 bolus; Site: left antecubital; 21:17 Follow up: IV Status: Completed infusion af2 21:17 Not Given (Patient Refused): ketorolac 30 mg IVP once af2 Signatures: Dispatcher [employer] EDMS Ramin Gómez, RN RN dwg Niki Díaz, Reg Reg gb Remy Castro, RPA-C RPA-Cck7 Paige MccauleyRN RN af2 Giesla Bowman b Abena Luna, Reg Reg ks16 The chart was reviewed and I authenticate all verbal orders and agree with the evaluation and treatment provided.Attachments: 23:44 [facility] Payment Agreement [facility] 09/13 10:14 T-Sheet-- Draft Copy gb 10:14 ECG/EKG gb Chart Complete MTDD
== END 2016-09-12 21:18 | disposition home or self-care (01) ==
LOC: M ED 16:35
DX: R07.9 Chest pain, unspecified (principal); I45.9 Conduction disorder, unspecified; Z87.891 Personal history of nicotine dependence
CPT/HCPCS: 36415; 71020; 80048; 82550; 82553; 84484; 85025; 85379; 85610; 85730; 93005; 96360; 96361; 99284; J1885

== ENCOUNTER → 2016-09-29 | Outpatient (REF) | payer MEDICARE, MEDICAID | LOC: M LABDRAW1 15:36 | PROVIDERS: ATTEND Internal Medicine Cardiovascular Disease | DX: R07.2 Precordial pain (principal); R00.2 Palpitations; R03.0 Elevated blood-pressure reading, without diagnosis of hypertension; Z82.49 Family history of ischemic heart disease and other diseases of the circulatory system ==

== ENCOUNTER 2018-03-25 14:28 | Emergency (ER) | payer MEDICARE, MEDICAID | END 2018-03-25 18:17 | disposition home or self-care (01) | LOC: M ED 14:28 | DX: S09.90XA Unspecified injury of head, initial encounter (principal); W50.0XXA Accidental hit or strike by another person, initial encounter; Y92.89 Other specified places as the place of occurrence of the external cause; Y93.83 Activity, rough housing and horseplay | CPT/HCPCS: 70450 ==

== ENCOUNTER 2023-03-27 12:20 | Emergency (ER) | payer MEDICAID, MEDICARE, OTHER ==
[~2023-03-27] VITALS: Ht 185.4 cm; Wt 79.8 kg
[2023-03-27] MEDS ORDERED: AMLO1TAB24 (12:44)
[2023-03-27] MEDS ORDERED: FLUO40CA (12:44)
[2023-03-27] MEDS ORDERED: TRAZ-252 (12:44)
[2023-03-27] MEDS ORDERED: LURA20TA (12:44)
[2023-03-27] MEDS ORDERED: PROP120C (12:44)
[2023-03-27] MEDS ORDERED: ACETAMINOPHEN 500 MG TAB PO ONE (15:10)
[2023-03-27 16:55] VITALS: BP 120/74; TEMP 99; O2SAT 96
== END 2023-03-27 17:27 | disposition home or self-care (01) ==
LOC: M ED 12:20
DX: R50.9 Fever, unspecified (principal); B34.9 Viral infection, unspecified; Z79.899 Other long term (current) drug therapy

== ENCOUNTER → 2024-02-05 | Outpatient (REF) | payer OTHER ==
[~2024-02-05] MED LIST: AMLO1TAB24; FLUO40CA; LURA20TA; PROP120C; TRAZ-252
[2024-02-05 14:29] LABS: Trichomonas vaginalis (AMP) NOT DETECTED (NEGATIVE)
[2024-02-05 14:52] LABS: GC DNA AMPLIFICATION NEGATIVE (NEGATIVE)
[2024-02-05 18:26] LABS: BASO # 0.1 10^3/uL (0.0-0.2); BASO % 1.2 % (0.0-1.0); EOS % 0.3 % (0.0-3.0); HEMATOCRIT 43.3 % (42.0-52.0); LYMPH # 1.6 10^3/uL (1.5-5.0); LYMPH % 16.9 % (24.0-44.0); MEAN CORPUSCULAR HEMOGLOBIN 29.5 pg (27.0-33.0); MEAN CORPUSCULAR HGB CONC 34.6 g/dl (32.0-36.5); MEAN CORPUSCULAR VOLUME 85.2 fl (80.0-96.0); MONO # 0.6 10^3/uL (0.0-0.8); MONO % 6.1 % (2.0-8.0); NEUTROPHILS # 6.6 10^3/uL (1.5-8.5); PLATELET COUNT, AUTOMATED 402 10^3/uL (150-450); RED BLOOD COUNT 5.08 10^6/uL (4.30-6.10); WHITE BLOOD COUNT 9.3 10^3/uL (4.0-10.0)
[2024-02-05 18:37] LABS: ALBUMIN 3.8 G/DL (3.2-5.2); ALKALINE PHOSPHATASE 66 U/L (46-116); ALT/SGPT 35 U/L (7.0-40); AST/SGOT 19 U/L (<34); BILIRUBIN,TOTAL 0.4 MG/DL (0.3-1.2); BLOOD UREA NITROGEN 19 MG/DL (9-23); CALCIUM LEVEL 9.7 MG/DL (8.5-10.1); CARBON DIOXIDE LEVEL 29 MMOL/L (20-31); CHLORIDE LEVEL 103 MMOL/L (98-107); CHOLESTEROL LEVEL 135 MG/DL (<200); CHOLESTEROL RISK RATIO 3.13 (<5); CREATININE FOR GFR 0.64 MG/DL (0.70-1.30); GLOMERULAR FILTRATION RATE > 60.0 (>60); GLUCOSE, FASTING 87 MG/DL (60-100); LDL CHOLESTEROL 79.4 MG/DL (<100); SODIUM LEVEL 138 MMOL/L (136-145); TOTAL PROTEIN 7.4 G/DL (5.7-8.2); TRIGLYCERIDES LEVEL 63 MG/DL (<150)
[2024-02-05 18:39] LABS: THYROID STIMULATING HORMONE 0.769 uIU/ML (0.55-4.78)
[2024-02-05 18:41] LABS: TOTAL 25(OH) VITAMIN D 28.2 NG/ML (20.0-100.0)
[2024-02-05 19:05] LABS: HEMOGLOBIN A1c 4.8 % (4.0-6.0)
== END ==
LOC: M LAB REF 12:35
PROVIDERS: ATTEND Physician Assistant
DX: Z11.9 Encounter for screening for infectious and parasitic diseases, unspecified (principal); E61.1 Iron deficiency; E66.9 Obesity, unspecified; E55.9 Vitamin D deficiency, unspecified

== ENCOUNTER → 2024-10-23 | Outpatient (REF) | LOC: M LAB 13:28 | PROVIDERS: ATTEND Family Medicine | DX: Z02.1 Encounter for pre-employment examination (principal) ==

== ENCOUNTER 2025-03-23 11:14 | Emergency (ER) | payer OTHER ==
[~2025-03-23] VITALS: Ht 182.9 cm; Wt 85.8 kg
[2025-03-23] MEDS: TETANUS/DIPHTH/ACEL. PERTUSSIS 0.5 ML SYR IM.IMMUN ONE (16:33)
[2025-03-23 16:42] LABS: BASO # 0.1 10^3/uL (0.0-0.2); BASO % 1.3 % (0.0-1.0); EOS # 0.2 10^3/uL (0.0-0.5); EOS % 2.5 % (0.0-3.0); LYMPH # 1.2 10^3/uL (1.5-5.0); LYMPH % 19.4 % (24.0-44.0); MONO # 0.7 10^3/uL (0.0-0.8); MONO % 11.9 % (2.0-8.0); NEUTROPHILS # 3.9 10^3/uL (1.5-8.5); NEUTROPHILS % 64.6 % (36.0-66.0); PLATELET COUNT, AUTOMATED 245 10^3/uL (150-450)
[2025-03-23 17:18] LABS: ALT/SGPT 19 U/L (7.0-40); AST/SGOT 19 U/L (<34); CALCIUM LEVEL 9.7 MG/DL (8.5-10.1); CARBON DIOXIDE LEVEL 22 MMOL/L (20-31); CHLORIDE LEVEL 105 MMOL/L (98-107); CREATININE FOR GFR 0.65 MG/DL (0.70-1.30); GLOMERULAR FILTRATION RATE > 90.0 (>60); POTASSIUM SERUM 4.3 MMOL/L (3.5-5.1); SODIUM LEVEL 142 MMOL/L (136-145)
[2025-03-23 17:54] LABS: HEPATITIS B SURFACE ANTIBODY POSITIVE (POSITIVE); HEPATITIS C VIRUS ABY INDEX < 0.02 INDEX (<0.8); HIV 1&2 SCREEN NEGATIVE (NEGATIVE)
[2025-03-23 18:59] VITALS: BP 146/81; TEMP 97.1; O2SAT 99
== END 2025-03-23 19:01 | disposition home or self-care (01) ==
LOC: M ED 11:14
DX: Z77.21 Contact with and (suspected) exposure to potentially hazardous body fluids (principal); F12.10 Cannabis abuse, uncomplicated; Z79.899 Other long term (current) drug therapy; Z23 Encounter for immunization

== ENCOUNTER → 2025-04-23 | Outpatient (CLI) | payer OTHER ==
[2025-04-23 14:07] LABS: HIV 1&2 SCREEN NEGATIVE (NEGATIVE)
[2025-04-23 14:15] LABS: HEPATITIS C VIRUS ABY INDEX < 0.02 INDEX (<0.8)
== END ==
LOC: M PLALAB 11:01
PROVIDERS: ATTEND Internal Medicine Infectious Disease
DX: Z57.8 Occupational exposure to other risk factors (principal)

== ENCOUNTER → 2025-04-30 | Outpatient (REF) | payer OTHER ==
[2025-04-30 13:09] LABS: APPEARANCE, URINE CLEAR (CLEAR); BACTERIA, URINE AUTO NEGATIVE (NEGATIVE); BILIRUBIN, URINE AUTO NEGATIVE (NEGATIVE); BLOOD, URINE BLOOD NEGATIVE (NEGATIVE); GLUCOSE, URINE (UA) AUTO NEGATIVE (NEGATIVE); KETONE, URINE AUTO NEGATIVE (NEGATIVE); LEUKOCYTE ESTERASE, URINE AUTO NEGATIVE (NEGATIVE); MUCUS, URINE SMALL (NEGATIVE); NITRITE, URINE AUTO NEGATIVE (NEGATIVE); PROTEIN, URINE AUTO NEGATIVE (NEGATIVE); RBC, URINE AUTO 2 /HPF (0-3); SPECIFIC GRAVITY URINE AUTO 1.012 (1.002-1.035); SQUAMOUS EPITHELIAL CELL UR AU 0 /HPF (0-6); UROBILINOGEN, URINE AUTO 0.2 mg/dL (0.0-2.0); WBC, URINE AUTO 0 /HPF (0-3)
[2025-04-30 15:03] LABS: BASO # 0.1 10^3/uL (0.0-0.2); BASO % 1.4 % (0.0-1.0); EOS # 0.2 10^3/uL (0.0-0.5); EOS % 2.9 % (0.0-3.0); LYMPH # 1.4 10^3/uL (1.5-5.0); LYMPH % 27.3 % (24.0-44.0); MONO # 0.7 10^3/uL (0.0-0.8); MONO % 14.1 % (2.0-8.0); NEUTROPHILS # 2.7 10^3/uL (1.5-8.5); NEUTROPHILS % 53.9 % (36.0-66.0); PLATELET COUNT, AUTOMATED 249 10^3/uL (150-450)
[2025-04-30 15:08] LABS: ALT/SGPT 19 U/L (7.0-40); AST/SGOT 13 U/L (<34); CALCIUM LEVEL 10.0 MG/DL (8.5-10.1); CARBON DIOXIDE LEVEL 28 MMOL/L (20-31); CHLORIDE LEVEL 104 MMOL/L (98-107); CHOLESTEROL LEVEL 150 MG/DL (<200); CHOLESTEROL RISK RATIO 2.49 (<5); CREATININE FOR GFR 0.67 MG/DL (0.70-1.30); GLOMERULAR FILTRATION RATE > 90.0 (>60); LDL CHOLESTEROL 80.1 MG/DL (<100); NON-HDL-C 89.9 MG/DL; POTASSIUM SERUM 4.0 MMOL/L (3.5-5.1); SODIUM LEVEL 141 MMOL/L (136-145); TRIGLYCERIDES LEVEL 49 MG/DL (<150)
[2025-04-30 15:10] LABS: FREE T4 1.38 NG/DL (0.89-1.76); VITAMIN B12 LEVEL 616 PG/ML (211-911)
[2025-04-30 15:47] LABS: ESTIMATED AVERAGE GLUCOSE 88.0 MG/DL (60-110)
[2025-05-04 15:57] LABS: LYME TOTAL ANTIBODY CIA 1.42 Index (<=0.90)
[2025-05-04 17:47] LABS: LYME AB IGG BY CIA 3.78 Index (<=0.90); LYME AB IGM BY CIA 0.99 Index (<=0.90)
== END ==
LOC: M LAB REF 12:20
PROVIDERS: ATTEND Physician Assistant
DX: F52.21 Male erectile disorder (principal); R20.2 Paresthesia of skin

== ENCOUNTER → 2025-05-11 | Outpatient (CLI) | payer OTHER | LOC: M PLAIMG 08:37 | PROVIDERS: ATTEND Physician Assistant | DX: R51.9 Headache, unspecified (principal) ==

== ENCOUNTER → 2025-05-13 | Outpatient (REF) | payer OTHER ==
[2025-05-13 15:40] LABS: APPEARANCE, URINE CLEAR (CLEAR); BACTERIA, URINE AUTO NEGATIVE (NEGATIVE); BILIRUBIN, URINE AUTO NEGATIVE (NEGATIVE); BLOOD, URINE BLOOD NEGATIVE (NEGATIVE); GLUCOSE, URINE (UA) AUTO NEGATIVE (NEGATIVE); KETONE, URINE AUTO NEGATIVE (NEGATIVE); LEUKOCYTE ESTERASE, URINE AUTO NEGATIVE (NEGATIVE); MUCUS, URINE SMALL (NEGATIVE); NITRITE, URINE AUTO NEGATIVE (NEGATIVE); PROTEIN, URINE AUTO NEGATIVE (NEGATIVE); RBC, URINE AUTO 2 /HPF (0-3); SPECIFIC GRAVITY URINE AUTO 1.013 (1.002-1.035); SQUAMOUS EPITHELIAL CELL UR AU 0 /HPF (0-6); UROBILINOGEN, URINE AUTO 0.2 mg/dL (0.0-2.0); WBC, URINE AUTO 0 /HPF (0-3)
[2025-05-13 16:50] LABS: GC DNA AMPLIFICATION NEGATIVE (NEGATIVE)
[2025-05-13 17:06] LABS: Trichomonas vaginalis (AMP) NOT DETECTED (NEGATIVE)
== END ==
LOC: M LAB REF 14:31
PROVIDERS: ATTEND Physician Assistant
DX: R39.89 Other symptoms and signs involving the genitourinary system (principal)

== ENCOUNTER 2025-06-04 17:00 | Inpatient (IN) | payer OTHER ==
[~2025-06-04] VITALS: Ht 185.4 cm; Wt 78.4 kg
[~2025-06-04 17:00] MED LIST changes: -LURA20TA; +LURA20TA PO
[2025-06-04 18:16] LABS: AMPHETAMINES LEVEL URINE NEGATIVE (NEGATIVE); BARBITURATES URINE NEGATIVE (NEGATIVE); COCAINE METABOLITE URINE NEGATIVE (NEGATIVE); METHADONE URINE NEGATIVE (NEGATIVE); OPIATES URINE NEGATIVE (NEGATIVE); PHENCYCLIDINE URINE NEGATIVE (NEGATIVE)
[2025-06-04 18:17] LABS: BENZODIAZEPINES URINE POSITIVE (NEGATIVE); CANNABINOIDS URINE POSITIVE (NEGATIVE)
[2025-06-04 18:18] LABS: ETHYL ALCOHOL (ETHANOL) < 0.003 % (0.000-0.010)
[2025-06-04 18:20] LABS: ALT/SGPT 19 U/L (7.0-40); AST/SGOT 14 U/L (<34); CALCIUM LEVEL 9.7 MG/DL (8.5-10.1); CARBON DIOXIDE LEVEL 26 MMOL/L (20-31); CHLORIDE LEVEL 105 MMOL/L (98-107); CREATININE FOR GFR 0.68 MG/DL (0.70-1.30); GLOMERULAR FILTRATION RATE > 90.0 (>60); PLATELET COUNT, AUTOMATED 267 10^3/uL (150-450); POTASSIUM SERUM 3.5 MMOL/L (3.5-5.1); SALICYLATE LEVEL < 3.0 MG/DL (<30); SODIUM LEVEL 142 MMOL/L (136-145)
[2025-06-04] MEDS ORDERED: IBUPROFEN 400 MG TAB PO PRN (19:55)
[2025-06-04] MEDS ORDERED: MAALOX 30 ML SUSP *UDC PO PRN (19:55)
[2025-06-04] MEDS ORDERED: ACETAMINOPHEN 325 MG TAB PO PRN (19:55)
[2025-06-04] MEDS: NICOTINE POLACRILEX 2 MG GUM PO PRN (20:42)
[2025-06-04 20:48] VITALS: BP 128/87; TEMP 98.2; O2SAT 100
[2025-06-04] MEDS ORDERED: FLUV25TA11 PO (21:29)
[2025-06-04] MEDS ORDERED: TRAZ-257 PO (21:29)
[2025-06-04] MEDS ORDERED: ALPR0.5T3 PO (21:29)
[2025-06-04] MEDS ORDERED: DOXY100T PO (21:32)
[2025-06-04] MEDS ORDERED: HOME MED LIST COMPLETE! XX SCH (21:35)
[2025-06-04] MEDS: LORazepam 1 MG TAB PO PRN (22:44)
[2025-06-04] MEDS: traZODone 50 MG TAB PO PRN (22:44)
[2025-06-05] MEDS: HALOPERIDOL 5 MG TAB PO PRN (07:51)
[2025-06-05] MEDS: busPIRone 5 MG TAB PO SCH (09:52)
[2025-06-05] MEDS: DOXYCYCLINE HYCLATE 100 MG TABLET PO SCH (09:53)
[2025-06-05 15:21] VITALS: BP 129/70; TEMP 98.7; O2SAT 98
[2025-06-05] MEDS: LURASIDONE HCL 20 MG TAB PO SCH (20:20)
[2025-06-05] MEDS: traZODone 50 MG TAB PO SCH (20:20)
[2025-06-06 06:18] VITALS: BP 132/73; TEMP 98.2; O2SAT 98
[2025-06-06] MEDS: MOM 30 ML SUSPENSION UDC PO PRN (14:48)
[2025-06-06] MEDS: LURASIDONE HCL 40 MG TAB PO SCH (20:07)
[2025-06-06] MEDS: RAMELTEON 8 MG TAB PO SCH (20:07)
[2025-06-07 10:21] VITALS: BP 131/78; O2SAT 100
[2025-06-07 11:33] VITALS: BP 138/91; O2SAT 97
[2025-06-07] MEDS: BENZTROPINE 1 MG TAB PO ONE (14:14)
[2025-06-07] MEDS: PROPRANOLOL 10 MG TAB PO ONE (14:14)
[2025-06-07 15:35] VITALS: BP 137/85; TEMP 98; O2SAT 99
[2025-06-07 16:09] VITALS: BP 134/91; O2SAT 99
[2025-06-07 18:04] VITALS: BP 148/98; O2SAT 81
[2025-06-07 18:35] VITALS: BP 136/87; O2SAT 99
[2025-06-07] MEDS: ALPRAZolam 0.5 MG TAB PO PRN (18:47)
[2025-06-07] MEDS: PROPRANOLOL 10 MG TAB PO SCH (20:19)
[2025-06-08 06:20] VITALS: BP 135/78; TEMP 97.3; O2SAT 98
[2025-06-08 09:26] VITALS: BP 136/95
[2025-06-08] MEDS ORDERED: BUSP10TA PO (12:08)
[2025-06-08] MEDS ORDERED: PROP10TA56 PO (12:08)
== END 2025-06-08 15:11 | disposition home or self-care (01) | DRG 882 ==
LOC: M ED 17:00 → M ED INP 19:53 → M PSY 20:49
PROVIDERS: ADMIT Student in an Organized Health Care Education/Training Program; ATTEND Student in an Organized Health Care Education/Training Program
DX: F43.22 Adjustment disorder with anxiety (principal); A69.20 Lyme disease, unspecified; F41.1 Generalized anxiety disorder; F43.0 Acute stress reaction; F42.9 Obsessive-compulsive disorder, unspecified; G47.00 Insomnia, unspecified; F17.210 Nicotine dependence, cigarettes, uncomplicated; Z79.899 Other long term (current) drug therapy; Z79.2 Long term (current) use of antibiotics

== ENCOUNTER → 2025-07-06 | Outpatient (REF) ==
[~2025-07-06] MED LIST changes: +ALPR0.5T3 PO; +BUSP10TA PO; +DOXY100T PO; +FLUV25TA11 PO; +PROP10TA56 PO; +TRAZ-257 PO
== END ==
LOC: M LAB 12:52
PROVIDERS: ATTEND Pathology Forensic Pathology
DX: Z01.89 Encounter for other specified special examinations (principal)